=== PATIENT | male | born 1985 | race Caucasian/White ===

== ENCOUNTER 2017-04-11 18:42 | Emergency (ER) | payer MEDICAID ==
[2017-04-11 18:52] VITALS: BMI 39.3
[2017-04-11] MEDS ORDERED: Sodium Chloride 0.9% 1,000 ML IV STA (19:06)
[2017-04-11 19:56] LABS: BASO # 0.04 K/mm3 (0.0-2.0); BASO % 0.2 % (0.0-3.0); EOS % 0.2 % (1.5-5.0); GRAN # 19.98 (1.4-6.5); GRAN % 79.6 % (50.0-68.0); HEMOGLOBIN 15.2 g/dL (14.0-18.0); LYMPH # 2.8 (1.2-3.4); LYMPH % 11.3 % (22.0-35.0); MEAN CELL VOLUME 83.1 fl (80.0-105.0); MEAN CORPUSCULAR HEMOGLOBIN 27.3 pg (25.0-35.0); MEAN CORPUSCULAR HGB CONC 32.8 g/dl (31.0-37.0); MEAN PLATELET VOLUME 10.7 fl (7.0-11.0); MONO # 2.2 (0.1-0.6); MONO % 8.7 % (1.0-6.0); RBC 5.57 10^6/uL (3.5-6.1); RED CELL DISTRIBUTION WIDTH 14.7 % (11.5-14.5)
[2017-04-11 19:58] LABS: WHITE BLOOD COUNT 25.1 10^3/ul (4.5-11.0)
[2017-04-11 19:59] LABS: INR 1.24 (0.93-1.08); PARTIAL THROMBOPLASTIN TIME 35.4 Seconds (25.1-36.5); PROTHROMBIN TIME 14.2 SECONDS (9.4-12.5)
[2017-04-11 20:05] LABS: BLOOD UREA NITROGEN 9 mg/dL (7-21); CALCIUM 9.3 mg/dL (8.4-10.5); GFR AFRICAN-AMERICAN > 60; GFR NON-AFRICAN AMERICAN > 60
[2017-04-11 20:06] LABS: ALB/GLOB RATIO 1.3 (1.1-1.8); ALT/SGPT 52 U/L (7-56); AST/SGOT 44 U/L (17-59)
[2017-04-11 20:33] LABS: VENOUS BLOOD GAS BASE EXCESS 1.2 mmol/L (0.0-2.0); VENOUS BLOOD GAS PO2 56 mm/Hg (30-55); VENOUS BLOOD PH 7.41 (7.32-7.43)
[2017-04-11 21:13] LABS: URINE APPEARANCE CLEAR (CLEAR); URINE BILIRUBIN NEGATIVE (NEGATIVE); URINE BLOOD NEGATIVE (NEGATIVE); URINE COLOR YELLOW (YELLOW); URINE GLUCOSE (UA) NEGATIVE (NEGATIVE); URINE LEUKOCYTE ESTERASE NEGATIVE Leu/uL (NEGATIVE); URINE NITRATE NEGATIVE (NEGATIVE); URINE PROTEIN TRACE mg/dL (<30 mg/dL)
[2017-04-11] MEDS ORDERED: cefTRIAXone 1 gm 1 GM/100 ML BAG IVPB STA (21:22)
--- NOTE | 2017-04-11 21:28 | ED PDOC ---
Arrival/HPI - General Chief Complaint: Flu-like Symptoms Time Seen by Provider: 04/11/17 19:05 Historian: Patient - History of Present Illness Narrative History of Present Illness (Text): 04/11/17 21:23 32yo male with no PMHx who present with complaint of fever, chills and malaise since yesterday. Notes that he took Nqyuil at 1530. States his was sick with Flu 2weeks ago. He denies cough, sore throat, abdominal pain, nausea, vomiting, diarrhea, constipation, chest pain, SOB, any other complaint. Past Medical History - Provider Review Nursing Documentation Reviewed: Yes - Past History Past History: No Previous - Infectious Disease Hx of Infectious Diseases: None - Tetanus Immunization Tetanus Immunization: Up to Date - Past Medical History Past Medical History: No Previous - Cardiac Hx Cardiac Disorders: No Other/Comment: R dvt - Pulmonary Hx Respiratory Disorders: Yes Hx Pulmonary Embolism: Yes Hx Respiratory Tract Infection: Yes - Neurological Hx Neurological Disorder: No - HEENT Hx HEENT Disorder: Yes (wears glasses) - Renal Hx Renal Disorder: No - Endocrine/Metabolic Hx Endocrine Disorders: No - Hematological/Oncological Hx Blood Disorders: No - Integumentary Hx Dermatological Disorder: No - Musculoskeletal/Rheumatological Hx Musculoskeletal Disorders: No - Gastrointestinal Hx Gastrointestinal Disorders: Yes Hx Gastroesophageal Reflux: Yes - Genitourinary/Gynecological Hx Genitourinary Disorders: No - Psychiatric Hx Psychophysiologic Disorder: No Hx Substance Use: No - Past Surgical History Past Surgical History: No Previous - Surgical History Hx Amputation: No Hx Appendectomy: No Hx Cardiac Catheterization: No Hx Cholecystectomy: No Hx Coronary Stent: No Hx Gastric Bypass Surgery: No Hx Hysterectomy: No Hx Joint Replacement: No Hx Kidney Transplant: No Hx Liver Transplant: No Hx Mastectomy: No Hx Musculoskeletal Surgery: No Hx Open Heart Surgery: No Hx Orthopedic Surgery: No Hx Splenectomy: No Hx Valve Replacement: No - Anesthesia Hx Anesthesia: No Hx Anesthesia Reactions: No Hx Malignant Hyperthermia: No - Suicidal Assessment Feels Threatened In Home Enviroment: No Family/Social History - Physician Review Nursing Documentation Reviewed: Yes Family/Social History: Unknown Family HX Smoking Status: Current Some Days Smoker Hx Alcohol Use: No Hx Substance Use: No Hx Substance Use Treatment: No Allergies/Home Meds Allergies/Adverse Reactions: Allergies No Known Allergies Allergy (Verified 04/11/17 18:52) Review of Systems - Physician Review All systems were reviewed & negative as marked: Yes - Review of Systems Constitutional: Fatigue, Fevers Eyes: Normal ENT: Normal Respiratory: Normal Cardiovascular: Normal Gastrointestinal: Normal Genitourinary Male: Normal Musculoskeletal: Normal Skin: Normal Neurological: Normal Endocrine: Normal Hemo/Lymphatic: Normal Psychiatric: Normal Physical Exam Vital Signs Reviewed: Yes Vital Signs Temp Pulse Resp BP Pulse Ox 04/11/17 22:34 99.3 F 88 16 140/85 99 04/11/17 20:47 100.9 F H 04/11/17 20:35 99.3 F 80 16 144/82 99 04/11/17 18:48 100.5 F H 140 H 20 151/86 H 97 Temperature: Febrile Blood Pressure: Normal Pulse: Tachycardic Respiratory Rate: Normal Appearance: Positive for: Well-Appearing, Non-Toxic, Comfortable Pain Distress: None Mental Status: Positive for: Alert and Oriented X 3 - Systems Exam Head: Present: Atraumatic, Normocephalic Pupils: Present: PERRL Extroacular Muscles: Present: EOMI Conjunctiva: Present: Normal Mouth: Present: Moist Mucous Membranes Neck: Present: Normal Range of Motion Respiratory/Chest: Present: Clear to Auscultation, Good Air Exchange. No: Respiratory Distress, Accessory Muscle Use Cardiovascular: Present: Regular Rate and Rhythm, Normal S1, S2. No: Murmurs Abdomen: Present: Normal Bowel Sounds. No: Tenderness, Distention, Peritoneal Signs Back: Present: Normal Inspection Upper Extremity: Present: Normal Inspection. No: Cyanosis, Edema Lower Extremity: Present: Normal Inspection. No: Edema Neurological: Present: GCS=15, CN II-XII Intact, Speech Normal Skin: Present: Warm, Dry, Normal Color. No: Rashes Psychiatric: Present: Alert, Oriented x 3, Normal Insight, Normal Concentration Medical Decision Making ED Course and Treatment: 04/12/17 01:17 PT was comfortable, not lethargic. He was febrile on presentation. Lab show Leukocyte of 21.1 Other labs was unremarkable. Source of pt's leukocytosis is not clear. blood culture is pending and lactic acid is WNL. It could be viral. Rapid flu and CXr was negative. Pt however needed admission for further evalaution and Observation. he was offered admission, but declined and signed out AMA. He expressed understanding of the fact that he could become septic and . He states he understands these risks but will rather sign out AMA, hence he is scheduled to start a new hob tomorrow. States he will f/u with his PMD. Dr. Sarmiento, pt's PMD was paged couple of times to DC, but he never returned the call. Pt was given a copy of lab and was strongly advised to f/u with his PMd. Advised TRT ED at anytime he changes his mind. - Lab Interpretations Lab Results: 04/11/17 19:30 04/11/17 19:30 Lab Results 04/11/17 21:00: Grp A Beta Strep Ag Negative 04/11/17 21:00: Urine Color Yellow, Urine Appearance Clear, Urine pH 8.0, Ur Specific [place] 1.010, Urine Protein Trace H, Urine Glucose (UA) Negative, Urine Ketones Negative, Urine Blood Negative, Urine Nitrate Negative, Urine Bilirubin Negative, Urine Urobilinogen 2.0 H, Ur Leukocyte Esterase Negative, Urine RBC 0 - 2, Urine WBC 1 - 3, Ur Epithelial Cells 0 - 2, Urine Bacteria Mod 04/11/17 20:15: pO2 56 H, VBG pH 7.41, VBG pCO2 41.0, VBG HCO3 26.0, VBG Total CO2 27.3, VBG O2 Sat (Calc) 94.5 H, VBG Base Excess 1.2, VBG Potassium 4.3, Glucose 147 H, Lactate 1.4, FiO2 21.0, Sodium 135.0, Chloride 103.0, Venous Blood Potassium 4.3 04/11/17 19:30: Sodium 141, Potassium 4.0, Chloride 102, Carbon Dioxide 28, Anion Gap 15, BUN 9, Creatinine 0.8, Est GFR ( Amer) > 60, Est GFR (Non- Af Amer) > 60, Random Glucose 143 H, Calcium 9.3, Total Bilirubin 0.8, AST 44, ALT 52, Alkaline Phosphatase 81, Total Protein 7.2, Albumin 4.0, Globulin 3.1, Albumin/Globulin Ratio 1.3 04/11/17 19:30: PT 14.2 H, INR 1.24 H, APTT 35.4 04/11/17 19:30: Influenza Typ A,B (EIA) Negative for flu a/b 04/11/17 19:30: WBC 25.1 H* D, RBC 5.57, Hgb 15.2, Hct 46.3, MCV 83.1, MCH 27.3 , MCHC 32.8, RDW 14.7 H, Plt Count 211, MPV 10.7, Gran % 79.6 H, Lymph % (Auto) 11.3 L, Luna % (Auto) 8.7 H, Eos % (Auto) 0.2 L, Baso % (Auto) 0.2, Gran # 19.98 H, Lymph # (Auto) 2.8, Luna # (Auto) 2.2 H, Eos # (Auto) 0.0, Baso # (Auto ) 0.04 - RAD Interpretation Radiology Orders: 04/11/17 19:59 CHEST PORTABLE [RAD] Stat - Medication Orders Current Medication Orders: Discontinued Medications Acetaminophen (Tylenol 325mg Tab) 650 mg PO STAT STA Stop: 04/11/17 20:01 Last Admin: 04/11/17 20:47 Dose: 650 mg MAR Pain/Vitals Document 04/11/17 20:47 MS (Rec: 04/11/17 20:48 [facility] [id number] Pain Reassessment Is This A Pain ReAssessment? No Vitals Temperature (97.6 F-99.6 F) 100.9 F Temperature Source Oral Sodium Chloride (Sodium Chloride 0.9%) 1,000 mls @ 999 mls/hr IV .Q1H1M STA Stop: 04/11/17 20:06 Last Admin: 04/11/17 19:39 Dose: 999 mls/hr eMAR Start Stop Document 04/11/17 19:39 MS (Rec: 04/11/17 19:40 MS [id number]) Intravenous Solution Start Date 04/11/17 Start Time 19:39 End Date 04/11/17 End time 20:39 Total Infusion Time 60 Ceftriaxone Sodium (Rocephin 1 Gram Ivpb) 1 gm in 100 mls @ 100 mls/hr IVPB DAILY STA PRN Reason: Protocol Stop: 04/11/17 22:21 Last Admin: 04/11/17 21:38 Dose: 100 mls/hr eMAR Start Stop Document 04/11/17 21:38 MS (Rec: 04/11/17 21:44 [facility] [id number]) Intravenous Solution Start Date 04/11/17 Start Time 21:44 End Date 04/11/17 End time 22:44 Total Infusion Time 60 Oseltamivir Phosphate (Tamiflu Cap) 75 mg PO ONCE STA PRN Reason: Protocol Stop: 04/11/17 21:47 Last Admin: 04/11/17 21:59 Dose: 75 mg Disposition/Present on Arrival - Present on Arrival Any Indicators Present on Arrival: No History of DVT/PE: Yes History of Uncontrolled Diabetes: No Urinary Catheter: No History of Decub. Ulcer: No History Surgical Site Infection Following: None - Disposition Have Diagnosis and Disposition been Completed?: Yes Diagnosis: Leukocytosis, Viral syndrome Disposition: AGAINST MEDICAL ADVICE Disposition Time: 21:45 Condition: FAIR Discharge Instructions (ExitCare): Viral Syndrome (DC) Prescriptions: Amoxicillin/Clavulanate [Augmentin 875 MG-125 MG] 1 tab PO BID #20 tab Oseltamivir [Tamiflu] 75 mg PO BID #10 cap Referrals: Hayden Sarmiento MD [Primary Care Provider] - Follow up with primary Forms: [employer] (Greek)
[2017-04-11 21:34] LABS: URINE RBC 0 - 2 /hpf (0-2)
[2017-04-11 21:41] LABS: URINE BACTERIA MOD (NEG); URINE EPITHELIAL CELLS 0 - 2 /hpf (0-5)
[2017-04-11 22:35] VITALS: BP 140/85; PULSE 88; RESP 16; TEMP 99.3; O2SAT 99
--- NOTE | 2017-04-12 08:36 | CARD ---
APPROVED REPORT EKG Measurement Heart [id number] <Conclusion> Sinus tachycardia Possible Left atrial enlargement Nonspecific T wave abnormality Abnormal ECG C/W ECG 04/20/16; the rate has increased
--- NOTE | 2017-04-12 09:06 | RAD ---
HISTORY: admission COMPARISON: Comparison chest 04/20/2016 FINDINGS: LUNGS: No active pulmonary disease. PLEURA: No significant pleural effusion identified, no pneumothorax apparent. CARDIOVASCULAR: Normal. OSSEOUS STRUCTURES: No significant abnormalities. VISUALIZED UPPER ABDOMEN: Normal. OTHER FINDINGS: None. IMPRESSION: No active disease.
== END 2017-04-11 22:36 | disposition left against medical advice (07) ==
LOC: ED 18:42
DX: B34.9 Viral infection, unspecified (principal); D72.829 Elevated white blood cell count, unspecified
CPT/HCPCS: 71045; 80053; 81001; 82803; 85025; 85610; 85730; 87040; 87070; 87430; 87804; 93005; 96361; 96365; 99284; J0696; J7040

== ENCOUNTER 2017-04-29 00:54 | Emergency (ER) | payer MEDICAID ==
[2017-04-29 01:26] VITALS: TEMP 98.7
[2017-04-29 02:11] VITALS: BMI 38.5
--- NOTE | 2017-04-29 02:15 | ED PDOC ---
Arrival/HPI - General Chief Complaint: High Blood Pressure Time Seen by Provider: 04/29/17 01:26 Historian: Patient - History of Present Illness Narrative History of Present Illness (Text): 04/29/17 02:15 Eugene Aj is a 32 year old male, whose past medical history includes hypertension, who presents to the Emergency department complaining of high blood pressure. Patient states he noted his blood pressure was higher than usual today and was concerned. Patient reports he is non-compliant with his blood pressure medication. Patient also complaining of sore throat. Patient denies any fever, chills, cough, shortness of breath, wheezing, chest pain, vomiting, headache, dizziness, neck pain, back pain, or any other complaints. Symptom Onset: Gradual Symptom Course: Unchanged Activities at Onset: Light Context: Home Past Medical History - Provider Review Nursing Documentation Reviewed: Yes - Past History Past History: No Previous - Infectious Disease Hx of Infectious Diseases: None - Tetanus Immunization Tetanus Immunization: Up to Date - Past Medical History Past Medical History: No Previous - Cardiac Hx Cardiac Disorders: No Other/Comment: R dvt - Pulmonary Hx Respiratory Disorders: Yes Hx Pulmonary Embolism: Yes Hx Respiratory Tract Infection: Yes - Neurological Hx Neurological Disorder: No - HEENT Hx HEENT Disorder: Yes (wears glasses) - Renal Hx Renal Disorder: No - Endocrine/Metabolic Hx Endocrine Disorders: No - Hematological/Oncological Hx Blood Disorders: No - Integumentary Hx Dermatological Disorder: No - Musculoskeletal/Rheumatological Hx Musculoskeletal Disorders: No - Gastrointestinal Hx Gastrointestinal Disorders: Yes Hx Gastroesophageal Reflux: Yes - Genitourinary/Gynecological Hx Genitourinary Disorders: No - Psychiatric Hx Psychophysiologic Disorder: No Hx Substance Use: No - Past Surgical History Past Surgical History: No Previous - Surgical History Hx Amputation: No Hx Appendectomy: No Hx Cardiac Catheterization: No Hx Cholecystectomy: No Hx Coronary Stent: No Hx Gastric Bypass Surgery: No Hx Hysterectomy: No Hx Joint Replacement: No Hx Kidney Transplant: No Hx Liver Transplant: No Hx Mastectomy: No Hx Musculoskeletal Surgery: No Hx Open Heart Surgery: No Hx Orthopedic Surgery: No Hx Splenectomy: No Hx Valve Replacement: No - Anesthesia Hx Anesthesia: No Hx Anesthesia Reactions: No Hx Malignant Hyperthermia: No - Suicidal Assessment Feels Threatened In Home Enviroment: No Family/Social History - Physician Review Nursing Documentation Reviewed: Yes Family/Social History: Unknown Family HX Smoking Status: Current Some Days Smoker Hx Alcohol Use: No Hx Substance Use: No Hx Substance Use Treatment: No Allergies/Home Meds Allergies/Adverse Reactions: Allergies No Known Allergies Allergy (Verified 04/11/17 18:52) Review of Systems - Physician Review All systems were reviewed & negative as marked: Yes - Review of Systems Constitutional: Normal. absent: Fevers Eyes: Normal ENT: Sore Throat Respiratory: Normal. absent: SOB, Cough Cardiovascular: Other (+high blood pressure). absent: Chest Pain Gastrointestinal: Normal. absent: Abdominal Pain, Diarrhea, Nausea, Vomiting Genitourinary Male: Normal. absent: Dysuria, Frequency, Hematuria, Urinary Output Changes Musculoskeletal: Normal. absent: Back Pain, Neck Pain Skin: Normal. absent: Rash Neurological: Normal. absent: Headache, Dizziness Endocrine: Normal Hemo/Lymphatic: Normal Psychiatric: Normal Physical Exam Vital Signs Reviewed: Yes Vital Signs Temp Pulse Resp BP Pulse Ox 04/29/17 02:39 91 H 151/84 H 04/29/17 01:25 98.7 F 95 H 18 158/92 H 99 Temperature: Afebrile Blood Pressure: Hypertensive Pulse: Regular Respiratory Rate: Normal Appearance: Positive for: Well-Appearing, Non-Toxic, Comfortable Pain Distress: None Mental Status: Positive for: Alert and Oriented X 3 - Systems Exam Head: Present: Atraumatic, Normocephalic Pupils: Present: PERRL Extroacular Muscles: Present: EOMI Conjunctiva: Present: Normal Ears: Present: Normal, NORMAL TM, Normal Canal. No: Erythema, TM Bulging, Fluid , TM Perf Mouth: Present: Moist Mucous Membranes Pharnyx: Present: ERYTHEMA (Erythema to posterior pharynx). No: EXUDATE, TONSILS ENLARGED, Peritonsilar Swelling, Uvular Deviation, Muffled/Hoarse Voice , Strider, Soft Palate/Uvular Edema Nose (External): Present: Atraumatic Nose (Internal): Present: Normal Inspection Neck: Present: Normal Range of Motion. No: Meningeal Signs, MIDLINE TENDERNESS , Paraspinal Tenderness Respiratory/Chest: Present: Clear to Auscultation, Good Air Exchange. No: Respiratory Distress, Accessory Muscle Use Cardiovascular: Present: Regular Rate and Rhythm, Normal S1, S2. No: Murmurs Abdomen: Present: Normal Bowel Sounds. No: Tenderness, Distention, Peritoneal Signs Back: Present: Normal Inspection Upper Extremity: Present: Normal Inspection. No: Cyanosis, Edema Lower Extremity: Present: Normal Inspection. No: Edema Neurological: Present: GCS=15, CN II-XII Intact, Speech Normal, Motor Func Grossly Intact, Normal Sensory Function, Normal Cerebellar Funct Skin: Present: Warm, Dry, Normal Color. No: Rashes Psychiatric: Present: Alert, Oriented x 3, Normal Insight, Normal Concentration Medical Decision Making ED Course and Treatment: 04/29/17 02:15 Impression: 32 year old male complaining of high blood pressure and sore throat today. Differential Diagnosis included but are not limited to: hypertension vs. pharyngitis Plan: -- Amoxil -- Catapres -- Reassess and disposition Prior Visits: Notes and results from previous visits were reviewed. On 04/11/2017, pt was seen in the Emergency department for fever, chills, and generalized malaise. Pt was d/c home. Progress Notes: 04/29/17 03:03 On re-evaluation, patient feels better and is in no acute distress. I have discussed the results and plan with the patient, who expresses understanding. Patient in agreement with plan to be discharged home. Patient is stable for discharge. Patient was instructed to follow up with physician or return if symptoms worsen or new concerning symptoms arise. - Medication Orders Current Medication Orders: Discontinued Medications Amoxicillin (Amoxil 500 Mg Cap) 500 mg PO STAT STA PRN Reason: Protocol Stop: 04/29/17 02:19 Last Admin: 04/29/17 02:40 Dose: 500 mg Clonidine HCl (Catapres) 0.1 mg PO STAT STA Stop: 04/29/17 02:19 Last Admin: 04/29/17 02:39 Dose: 0.1 mg [facility] Pulse and Blood Pressure Document 04/29/17 02:39 RD (Rec: 04/29/17 02:40 RD [id number]) Pulse Pulse Rate (60-90 beats/min) 91 Blood Pressure Blood Pressure (100/60-150/90 mm Hg) 151/84 - Scribe Statement The provider has reviewed the documentation as recorded by the Yumiibvalerie Fam Provider Scribe Attestation: All medical record entries made by the Scribe were at my direction and personally dictated by me. I have reviewed the chart and agree that the record accurately reflects my personal performance of the history, physical exam, medical decision making, and the department course for this patient. I have also personally directed, reviewed, and agree with the discharge instructions and disposition. Disposition/Present on Arrival - Present on Arrival Any Indicators Present on Arrival: No History of DVT/PE: Yes History of Uncontrolled Diabetes: No Urinary Catheter: No History of Decub. Ulcer: No History Surgical Site Infection Following: None - Disposition Have Diagnosis and Disposition been Completed?: Yes Diagnosis: Chronic hypertension, Pharyngitis Disposition: HOME/ ROUTINE Disposition Time: 03:02 Patient Plan: Discharge Condition: GOOD Discharge Instructions (ExitCare): High Blood Pressure (DC), Sore Throat, Adult (DC) Additional Instructions: Take your medication as prescribed/drink cool liquids/follow up with your doctor this week Prescriptions: Amoxicillin [Amoxil 500 mg Cap] 500 mg PO TID #21 cap Forms: [employer] (Eritrean)
[2017-04-29 03:37] VITALS: BP 156/76; PULSE 90; RESP 19; O2SAT 100
== END 2017-04-29 03:30 | disposition home or self-care (01) ==
LOC: ED 00:54
DX: I10 Essential (primary) hypertension (principal); J02.9 Acute pharyngitis, unspecified

== ENCOUNTER 2018-05-19 17:40 | Emergency (ER) | payer SELFPAY ==
[2018-05-19 17:49] VITALS: BMI 40.8
[2018-05-19] MEDS ORDERED: Sodium Chloride 0.9% 1,000 ML IV STA (18:00)
[2018-05-19 18:34] VITALS: RESP 18; TEMP 98.5
--- NOTE | 2018-05-19 18:35 | ED PDOC ---
Arrival/HPI - General Chief Complaint: Dizziness/Lightheaded Time Seen by Provider: 05/19/18 17:50 Historian: Patient - History of Present Illness Narrative History of Present Illness (Text): 05/19/18 18:26 33 y/o male with PMH of DVT (on Eliquis) and HTN presents to the ED c/o palpitations and lightheadedness x 2 hours. Pt was at work when he had a sudden onset of palpitations that he describes as his "heart racing". Associated lightheadedness and sinus congestion. No vertigo, near-syncope, or syncope. States he takes his medications as prescribed, last taken this morning. Last CTA was approx 1 year ago, negative for DVT. Has not taken any medications for symptoms. Denies fever, chills, chest pain, SOB, abdominal pain, nausea, vomiting, cough, back pain, diaphoresis, or any other associated symptoms. Past Medical History - Provider Review Nursing Documentation Reviewed: Yes - Past History Past History: No Previous - Infectious Disease Hx of Infectious Diseases: None - Tetanus Immunization Tetanus Immunization: Up to Date - Past Medical History Past Medical History: No Previous - Cardiac Hx Cardiac Disorders: Yes Other/Comment: R DVT - Pulmonary Hx Respiratory Disorders: Yes Hx Pulmonary Embolism: Yes Hx Respiratory Tract Infection: Yes - Neurological Hx Neurological Disorder: No - HEENT Hx HEENT Disorder: Yes (wears glasses) - Renal Hx Renal Disorder: No - Endocrine/Metabolic Hx Endocrine Disorders: No - Hematological/Oncological Hx Blood Disorders: No - Integumentary Hx Dermatological Disorder: No - Musculoskeletal/Rheumatological Hx Musculoskeletal Disorders: No - Gastrointestinal Hx Gastrointestinal Disorders: Yes Hx Gastroesophageal Reflux: Yes - Genitourinary/Gynecological Hx Genitourinary Disorders: No - Psychiatric Hx Psychophysiologic Disorder: No Hx Substance Use: No - Past Surgical History Past Surgical History: No Previous - Surgical History Hx Amputation: No Hx Appendectomy: No Hx Cardiac Catheterization: No Hx Cholecystectomy: No Hx Coronary Stent: No Hx Gastric Bypass Surgery: No Hx Hysterectomy: No Hx Joint Replacement: No Hx Kidney Transplant: No Hx Liver Transplant: No Hx Mastectomy: No Hx Musculoskeletal Surgery: No Hx Open Heart Surgery: No Hx Orthopedic Surgery: No Hx Splenectomy: No Hx Valve Replacement: No - Anesthesia Hx Anesthesia: No Hx Anesthesia Reactions: No Hx Malignant Hyperthermia: No - Suicidal Assessment Feels Threatened In Home Enviroment: No Family/Social History - Physician Review Nursing Documentation Reviewed: Yes Family/Social History: No Known Family HX Smoking Status: Heavy Smoker > 10 Cigarettes Daily Hx Alcohol Use: No Hx Substance Use: No Hx Substance Use Treatment: No Allergies/Home Meds Allergies/Adverse Reactions: Allergies No Known Allergies Allergy (Verified 05/19/18 17:51) Home Medications: Home Meds Medication Instructions Recorded Confirmed Metoprolol Tartrate [Lopressor] 1 tab PO DAILY 05/19/18 05/19/18 Review of Systems - Review of Systems Constitutional: Normal. absent: Fevers Eyes: Normal. absent: Vision Changes ENT: Rhinorrhea, Sinus Congestion. absent: Sore Throat Respiratory: Normal. absent: SOB, Cough Cardiovascular: Palpitations. absent: Chest Pain, Syncope Gastrointestinal: Normal. absent: Abdominal Pain, Nausea, Vomiting Genitourinary Male: Normal. absent: Dysuria, Frequency Musculoskeletal: Normal. absent: Back Pain, Neck Pain Skin: Normal. absent: Rash Neurological: Dizziness. absent: Headache Endocrine: Normal Hemo/Lymphatic: Normal Psychiatric: Normal Physical Exam Vital Signs Reviewed: Yes Temperature: Afebrile Blood Pressure: Hypertensive Pulse: Regular Respiratory Rate: Normal Appearance: Positive for: Well-Appearing, Non-Toxic, Comfortable Pain Distress: None Mental Status: Positive for: Alert and Oriented X 3 - Systems Exam Head: Present: Atraumatic, Normocephalic Pupils: Present: PERRL Extroacular Muscles: Present: EOMI Conjunctiva: Present: Normal Ears: Present: Normal, NORMAL TM, Normal Canal Mouth: Present: Moist Mucous Membranes Pharnyx: Present: Normal. No: ERYTHEMA, EXUDATE, TONSILS ENLARGED Neck: Present: Normal Range of Motion. No: Meningeal Signs, MIDLINE TENDERNESS, Paraspinal Tenderness Respiratory/Chest: Present: Clear to Auscultation, Good Air Exchange. No: R espiratory Distress, Accessory Muscle Use Cardiovascular: Present: Regular Rate and Rhythm, Normal S1, S2, Peripheal Pulses Present Abdomen: Present: Normal Bowel Sounds. No: Tenderness, Distention, Peritoneal Signs, Rebound, Guarding Back: Present: Normal Inspection. No: CVA Tenderness, Midline Tenderness, Paraspinal Tenderness Upper Extremity: Present: Normal Inspection, Normal ROM, NORMAL PULSES, Neurovascularly Intact, Capillary Refill < 2s. No: Cyanosis, Edema, Temperature Abnormalties Lower Extremity: Present: Normal Inspection, NORMAL PULSES, Normal ROM, Neur ovascularly Intact, Capillary Refill < 2 s. No: Edema, Temperature Abnormalties Neurological: Present: GCS=15, CN II-XII Intact, Speech Normal, Motor Func Grossly Intact, Normal Sensory Function, Gait Normal Skin: Present: Warm, Dry, Normal Color. No: Rashes Psychiatric: Present: Alert, Oriented x 3, Normal Insight, Normal Concentration, Normal Affect, Normal Mood Medical Decision Making ED Course and Treatment: 18:30 Initial Plan: * CBC, CMP * Coags * Cardiac Iso * Dimer * Rapid Flu * Rapid Strep * CXR * EKG * IVF EKG shows sinus tachycardia at 107, Normal intervals, No STEMI 19:14 Bloodwork reviewed, unremarkable Dimer negative, troponin negative Rapid flu and strep negative Patient reports feeling better with IV fluids 19:[address] Lui, who recommends CTA, PE protocol. 20:00 Patient care signed out to Dr. Lui , pending CTA result, reassessment and disposition. Pt resting comfortably in stretcher at this time in no acute distress. - Lab Interpretations Lab Results: 05/19/18 18:32 05/19/18 18:32 Lab Results 05/19/18 19:04: Influenza Typ A,B (EIA) Negative for flu a/b, Grp A Beta Strep Ag Negative 05/19/18 18:53: Urine Opiates Screen Negative, Urine Methadone Screen Negative, Ur Barbiturates Screen Negative, Ur Phencyclidine Scrn Negative, Ur Amphetamines Screen Negative, U Benzodiazepines Scrn Negative, U Oth Cocaine Metabols Negative, U Cannabinoids Screen Positive H 05/19/18 18:53: Urine Color Yellow, Urine Appearance Clear, Urine pH 7.0, Ur Specific Dutton 1.020, Urine Protein Negative, Urine Glucose (UA) Negative, Urine Ketones Negative, Urine Blood Negative, Urine Nitrate Negative, Urine Bilirubin Negative, Urine Urobilinogen 1.0 H, Ur Leukocyte Esterase Negative 05/19/18 18:32: Sodium 139, Potassium 4.3, Chloride 101, Carbon Dioxide 30, Anion Gap 12, BUN 15, Creatinine 0.8, Est GFR ( Amer) > 60, Est GFR (Non- Af Amer) > 60, Random Glucose 152 H, Calcium 9.6, Magnesium 2.0, Total Bilirubin 0.5, AST 40, ALT 41, Alkaline Phosphatase 100, Lactate Dehydrogenase 533, Total Creatine Kinase 153, Troponin I < 0.01, Total Protein 7.7, Albumin 4.2, Globulin 3.6, Albumin/Globulin Ratio 1.2 05/19/18 18:32: PT 12.2, INR 1.10, APTT 34.9, D-Dimer, Quantitative < 200 05/19/18 18:32: WBC 7.4, RBC 6.06, Hgb 16.5, Hct 50.4, MCV 83.2, MCH 27.2, MCHC 32.7, RDW 13.9, Plt Count 220, MPV 10.2, Neut % (Auto) 62.0, Lymph % (Auto) 27.6, Gulf % (Auto) 7.3 H, Eos % (Auto) 2.7, Baso % (Auto) 0.4, Lymph # (Auto) 2.0, Gulf # (Auto) 0.5, Eos # (Auto) 0.2, Baso # (Auto) 0.03, Absolute Neuts (auto) 4.59 I have reviewed the lab results: Yes - RAD Interpretation Narrative RAD Interpretations (Text): CXR: No 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 - EKG Interpretation EKG Interpretation (Text): Rate 107; Sinus Tachycardia; Normal Intervals; No STEMI, nonspecific ST/T wave changes Interpreted by ED Physician: Yes Type: 12 lead EKG - Medication Orders Current Medication Orders: Sodium Chloride (Sodium Chloride 0.9%) 1,000 mls @ 999 mls/hr IV .Q1H1M STA Stop: 05/19/18 19:00 - Transfer of Care Patient signed out to :Laura Lui Pending Radiology Studies:: CTA Chest, r/o PE Other: Reassessment and Disposition Disposition/Present on Arrival - Present on Arrival Any Indicators Present on Arrival: Yes History of DVT/PE: Yes History of Uncontrolled Diabetes: No Urinary Catheter: No History of Decub. Ulcer: No History Surgical Site Infection Following: None - Disposition Have Diagnosis and Disposition been Completed?: No Diagnosis: Palpitations Disposition Time: 20:00 Condition: STABLE Referrals: PCP,NO [Primary Care Provider] - Follow up with primary Forms: [employer] (Turkish)
[2018-05-19 18:39] LABS: BASO # 0.03 K/mm3 (0.0-2.0); BASO % 0.4 % (0.0-3.0); EOS # 0.2 (0.0-0.7); EOS % 2.7 % (1.5-5.0); HEMOGLOBIN 16.5 g/dL (14.0-18.0); LYMPH % 27.6 % (22.0-35.0); MEAN CELL VOLUME 83.2 fl (80.0-105.0); MEAN CORPUSCULAR HEMOGLOBIN 27.2 pg (25.0-35.0); MEAN CORPUSCULAR HGB CONC 32.7 g/dl (31.0-37.0); MEAN PLATELET VOLUME 10.2 fl (7.0-11.0); MONO # 0.5 (0.1-0.6); MONO % 7.3 % (1.0-6.0); RBC 6.06 10^6/uL (3.5-6.1); RED CELL DISTRIBUTION WIDTH 13.9 % (11.5-14.5); WHITE BLOOD COUNT 7.4 10^3/uL (4.5-11.0)
[2018-05-19 18:48] LABS: ALB/GLOB RATIO 1.2 (1.1-1.8); ALBUMIN 4.2 g/dL (3.0-4.8); ALT/SGPT 41 U/L (7-56); AST/SGOT 40 U/L (17-59); BLOOD UREA NITROGEN 15 mg/dL (7-21); CALCIUM 9.6 mg/dL (8.4-10.5); GFR NON-AFRICAN AMERICAN > 60
[2018-05-19 18:50] LABS: PARTIAL THROMBOPLASTIN TIME 34.9 Seconds (26.9-38.3); PROTHROMBIN TIME 12.2 SECONDS (9.4-12.5)
[2018-05-19 18:51] LABS: D DIMER < 200 ng/mlDDU (0-243)
[2018-05-19 18:58] LABS: URINE BILIRUBIN NEGATIVE (NEGATIVE); URINE BLOOD NEGATIVE (NEGATIVE); URINE GLUCOSE (UA) NEGATIVE (NEGATIVE); URINE LEUKOCYTE ESTERASE NEGATIVE Leu/uL (NEGATIVE); URINE PROTEIN NEGATIVE mg/dL (<30 mg/dL)
[2018-05-19 18:59] LABS: TROPONIN I < 0.01 ng/mL
[2018-05-19 18:59] LABS: URINE APPEARANCE CLEAR (CLEAR); URINE COLOR YELLOW (YELLOW)
[2018-05-19 19:20] LABS: BARBITURATES, UR NEGATIVE (NEGATIVE); BENZODIAZEPINES, UR NEGATIVE (NEGATIVE); OPIATES, UR NEGATIVE (NEGATIVE); PHENCYCLIDINE, UR NEGATIVE (NEGATIVE)
[2018-05-19 19:33] LABS: INFLUENZA A B NEGATIVE FOR FLU A/B (NEGATIVE)
[2018-05-19 22:54] VITALS: BP 145/74; PULSE 93; O2SAT 100
--- NOTE | 2018-05-20 07:32 | CT ---
Date of service: 05/19/2018 PROCEDURE: CT Chest with contrast (Pulmonary Angiogram) HISTORY: r/o PE COMPARISON: None available. TECHNIQUE: Axial computed tomography images were obtained of the chest in the pulmonary arterial phase of enhancement. Coronal and sagittal reformatted images were created and reviewed. Intravenous contrast dose: 148 cc of Omni 350 Radiation dose: Total exam DLP = 524.08 mGy-cm. This CT exam was performed using one or more of the following dose reduction techniques: Automated exposure control, adjustment of the mA and/or kV according to patient size, and/or use of iterative reconstruction technique. FINDINGS: PULMONARY ARTERIES: Unremarkable. No pulmonary embolism. AORTA: No acute findings. No thoracic aortic aneurysm. No aortic atherosclerotic calcification or mural plaque present. LUNGS: Unremarkable. No nodule, mass or pulmonary consolidation. PLEURAL SPACES: Unremarkable. No effusion or pneumothorax. HEART: Unremarkable. No cardiomegaly. No significant pericardial effusion. LYMPH NODES: No lymphadenopathy. BONES, CHEST WALL: Unremarkable. No fracture or destructive lesion OTHER FINDINGS: The report concurs with the preliminary [facility] report IMPRESSION: Unremarkable CT pulmonary angiogram. No pulmonary embolus.
--- NOTE | 2018-05-20 07:47 | RAD ---
Date of service: 05/19/2018 HISTORY: lightheaded COMPARISON: 04/11/2017 TECHNIQUE: 1 view obtained. FINDINGS: LUNGS: No active pulmonary disease. PLEURA: No significant pleural effusion identified, no pneumothorax apparent. CARDIOVASCULAR: No aortic atherosclerotic calcification present. Normal cardiac size. No pulmonary vascular congestion. OSSEOUS STRUCTURES: No significant abnormalities. VISUALIZED UPPER ABDOMEN: Normal. OTHER FINDINGS: None. IMPRESSION: No active disease.
--- NOTE | 2018-05-20 16:32 | CARD ---
APPROVED REPORT Date of service: 05/19/2018 EKG Measurement Heart [id number] <Conclusion> Sinus tachycardia Nonspecific T wave abnormality Abnormal ECG
== END 2018-05-19 22:45 | disposition home or self-care (01) ==
LOC: ED 17:40
DX: R00.2 Palpitations (principal); I10 Essential (primary) hypertension; Z86.718 Personal history of other venous thrombosis and embolism; Z79.01 Long term (current) use of anticoagulants; F17.210 Nicotine dependence, cigarettes, uncomplicated
CPT/HCPCS: 71045; 71275; 80053; 81003; 82550; 83615; 83735; 84484; 85025; 85378; 85610; 85730; 87070; 87086; 87430; 87804; 93005; 99285; G0480; J7030; Q9967